=== PATIENT | male | born 1955 | race Hispanic/Latino ===

== ENCOUNTER → 2022-05-31 | Outpatient (CLI) | payer MEDICARE ==
[~2022-05-31] MED LIST: ACET-66 PO; DIATR MEGLU/DIATRIZOATE SODIUM 30 ML BOTTLE ONE; LEFL20TA18 PO; TRAM50TA4 PO
== END | disposition home or self-care (01) ==
LOC: RAH 07:56
PROVIDERS: ATTEND Surgery
DX: K21.9 Gastro-esophageal reflux disease without esophagitis (principal); Z98.890 Other specified postprocedural states
CPT/HCPCS: 74240; Q9963

== ENCOUNTER 2022-06-03 06:17 | Day surgery (SDC) | payer MEDICARE ==
[~2022-06-03] VITALS: Ht 180.3 cm; Wt 132.9 kg
[~2022-06-03 06:17] MED LIST changes: -DIATR MEGLU/DIATRIZOATE SODIUM 30 ML BOTTLE ONE
[2022-06-03 06:45] VITALS: BP 140/86
[2022-06-03] MEDS ORDERED: SODIUM TETRADECYL SULFATE 30 MG/ML 2 ML VIAL IV ONE (09:00)
[2022-06-03] MEDS ORDERED: PROPOFOL 10 MG/ML 20ML VIAL IV ONE (09:17)
[2022-06-03] MEDS ORDERED: 0.9%NACL 1000ML 1,000 ML IV ONE (10:43)
== END 2022-06-03 10:08 | disposition home or self-care (01) ==
LOC: DAH 06:17 → ENDO 06:17 → EDSTATUS 08:15 → ENDO 10:08
PROVIDERS: ATTEND Surgery
DX: K21.9 Gastro-esophageal reflux disease without esophagitis (principal); Z20.822 Contact with and (suspected) exposure to COVID-19; J45.909 Unspecified asthma, uncomplicated; G47.30 Sleep apnea, unspecified; E66.9 Obesity, unspecified; M19.90 Unspecified osteoarthritis, unspecified site; Z98.890 Other specified postprocedural states; Z86.010 Personal history of colon polyps; Z82.49 Family history of ischemic heart disease and other diseases of the circulatory system; Z80.0 Family history of malignant neoplasm of digestive organs; Z82.61 Family history of arthritis; Z98.84 Bariatric surgery status; Z68.41 Body mass index [BMI] 40.0-44.9, adult
CPT/HCPCS: 87426; 43236; J7030 ×2; J2704; J3490; A4620; A4215 ×2; A4223; A4222; A4221; A4663; A4606

== ENCOUNTER 2022-07-04 05:48 | Day surgery (SDC) | payer MEDICARE, OTHER ==
[~2022-07-04] VITALS: Ht 180.3 cm; Wt 129.7 kg
[~2022-07-04 05:48] MED LIST changes: -ACET-66 PO; +IBUP-2733 PO; +MONT-39 PO; -TRAM50TA4 PO
[2022-07-04] MEDS ORDERED: SODIUM TETRADECYL SULFATE 30 MG/ML 2 ML VIAL IV ONE (06:00)
[2022-07-04 06:40] VITALS: BP 123/75
[2022-07-04] MEDS ORDERED: PROPOFOL 10 MG/ML 20ML VIAL IV ONE (07:54)
[2022-07-04] MEDS ORDERED: LIDOCAINE HCL 1% 20 ML VIAL ONE (07:55)
[2022-07-04] MEDS ORDERED: 0.9%NACL 1000ML 1,000 ML IV ONE (07:58)
[2022-07-04] MEDS ORDERED: MEPERIDINE-PF 25 MG/ML SYG ONE (08:37)
[2022-07-04] MEDS ORDERED: ONDANSETRON 4MG INJ ONE (08:46)
== END 2022-07-04 09:10 | disposition home or self-care (01) ==
LOC: DAH 05:48 → ENDO 05:48
PROVIDERS: ATTEND Surgery
DX: K21.9 Gastro-esophageal reflux disease without esophagitis (principal); Z20.822 Contact with and (suspected) exposure to COVID-19; M19.90 Unspecified osteoarthritis, unspecified site; J45.909 Unspecified asthma, uncomplicated; G47.30 Sleep apnea, unspecified; Z98.890 Other specified postprocedural states; Z88.0 Allergy status to penicillin; Z82.61 Family history of arthritis; Z79.899 Other long term (current) drug therapy; Z98.84 Bariatric surgery status
CPT/HCPCS: 87426; 43236; J7030 ×2; J2704; J2405; J2175; J3490; A4620; A4215 ×2; A4223; A4657; A4222; A4221; A4663; A4606

== ENCOUNTER 2022-08-08 07:56 | Day surgery (SDC) | payer MEDICARE, OTHER ==
[2022-08-05 13:48] VITALS: BP 128/81
[2022-08-05 14:03] VITALS: BP 128/81
[~2022-08-08] VITALS: Ht 180.3 cm; Wt 125.6 kg
[2022-08-08 09:00] VITALS: BP 121/81
[2022-08-08] MEDS ORDERED: SODIUM TETRADECYL SULFATE 30 MG/ML 2 ML VIAL IV ONE (09:30)
[2022-08-08] MEDS ORDERED: ALBU90AE2 IH (09:53)
[2022-08-08] MEDS ORDERED: MIRT-72 PO (09:53)
[2022-08-08] MEDS ORDERED: SEMA0.258 SQ (09:53)
[2022-08-08] MEDS ORDERED: CARB1DRO21 OP (09:53)
[2022-08-08] MEDS ORDERED: FLUT15.845 NS (09:53)
[2022-08-08] MEDS ORDERED: KETO-100 OP (09:53)
[2022-08-08] MEDS ORDERED: AREDS PO (09:53)
[2022-08-08] MEDS ORDERED: 0.9%NACL 1000ML 1,000 ML IV ONE (10:46)
[2022-08-08] MEDS ORDERED: LIDOCAINE PF 100MG/5ML (2%) SYRINGE 5ML ONE (12:05)
[2022-08-08] MEDS ORDERED: PROPOFOL 10 MG/ML 20ML VIAL IV ONE (12:05)
[2022-08-08] MEDS ORDERED: GLYCOPYRROLATE 1 MG/5 ML SYRINGE ONE (12:07)
== END 2022-08-08 12:55 | disposition home or self-care (01) ==
LOC: DAH 07:56
PROVIDERS: ATTEND Surgery
DX: K21.9 Gastro-esophageal reflux disease without esophagitis (principal); Z20.822 Contact with and (suspected) exposure to COVID-19; J45.909 Unspecified asthma, uncomplicated; G47.30 Sleep apnea, unspecified; M19.90 Unspecified osteoarthritis, unspecified site; Z86.010 Personal history of colon polyps; Z98.84 Bariatric surgery status; Z98.890 Other specified postprocedural states; Z82.61 Family history of arthritis; Z82.49 Family history of ischemic heart disease and other diseases of the circulatory system
CPT/HCPCS: 87426; 43236; J3490 ×2; J7030 ×2; J2001; J2704; A4620; A4215 ×2; A4223; A4657 ×3; A7002; A4222; A4221; A4663; A4216; A4606; 43201